=== PATIENT | female | born 1965 | race African-American/Black ===

== ENCOUNTER 2016-12-30 08:13 | Emergency (ER) | payer OTHER ==
[~2016-12-30] VITALS: Ht 162.6 cm; Wt 66.8 kg
[~2016-12-30 08:13] MED LIST: AZIT250T3 PO; IPRA0.03 EACH NARE
[2016-12-30 08:17] VITALS: BP 131/91; PULSE 69; RESP 16; TEMP 97.7; O2SAT 98
[2016-12-30] MEDS ORDERED: SERT-132 PO (08:29)
--- NOTE | 2016-12-30 08:39 | PD ---
HPI Chief Complaint: Abdominal Pain Time Seen by Provider: 08:33 Travel History International Travel<30 days: No Contact w/Intl Traveler<30days: No Traveled to known affect area: No History of Present Illness HPI Patient presents with epigastric discomfort. Reports several episodes of vomiting primarily after eating greasy foods. Admits to acid brash. No intervention with an H2 danna or proton pump inhibitor. Denies any change in bowels or urination. Denies hematemesis. Denies . PFSH Past Medical History Hx Anticoagulant Therapy: No Autoimmune Disease: Yes (SARCOIDOSIS) Anxiety: Yes Cardiac Catheterization: No Cardiovascular Problems: No High Cholesterol: Yes Chemotherapy: No Cerebrovascular Accident: No Diabetes: No Diminished Hearing: No Glaucoma: Yes (HX OF--NOW RESOLVED) Hepatitis: No Hiatal Hernia: No Hypertension: Yes Medical other: Yes (SARCOIDOSIS) Respiratory: Yes (SARCODOSIS) Immunizations Current: Yes Myocardial Infarction: No Thyroid Disease: No Tetanus Vaccination: < 5 Years Influenza Vaccination: No PNEUMOCCOCAL Vaccine (Year): 1 ?: Not Menopausal: Yes Past Surgical History Abdominal Surgery: No Cardiac Surgery: No Coronary Artery Bypass Graft: No Ear Surgery: No Endocrine Surgery: No Eye Surgery: Yes (both eyes-) Genitourinary Surgery: No Gynecologic Surgery: Yes (HYSTERECTOMY 2000) Hysterectomy: Yes (PARTIAL) Neurologic Surgery: No Oral Surgery: No Pacemaker: No Thoracic Surgery: No Other Surgery: Yes Family History Family Myocardial Infarction: Yes Social History Alcohol Use: No Tobacco Use: No Substance Use: No Allergies-Medications (Allergen,Severity, Reaction): Coded Allergies: Imuran (Verified Allergy, Severe, VOMITING, 12/30/16) Reported Meds & Prescriptions Reported Meds & Active Scripts Active Reported Sertraline (Sertraline HCl) 50 Mg Tab 50 Mg PO HS Review of Systems Gastrointestinal: Positive: Nausea, Vomiting Physical Exam Narrative GENERAL: Well-nourished, well-developed patient. SKIN: Focused skin assessment warm/dry. HEAD: Normocephalic. EYES: No scleral icterus. No injection or drainage. NECK: Supple, trachea midline. No JVD or lymphadenopathy. CARDIOVASCULAR: Regular rate and rhythm without murmurs, gallops, or rubs. RESPIRATORY: Breath sounds equal bilaterally. No accessory muscle use. GASTROINTESTINAL: Abdomen soft, non-tender, nondistended. Noted to belch several times on exam MUSCULOSKELETAL: No cyanosis, or edema. BACK: Nontender without obvious deformity. No CVA tenderness. Data Data Last Documented VS Vital Signs Date Time Temp Pulse Resp B/P Pulse Ox O2 Delivery O2 Flow Rate FiO2 12/30/16 08:17 97.7 69 16 131/91 98 Orders Al-Mag Hy-Si 40-40-4 Mg/Ml Liq (Mag-Al P (12/30/16 08:45) Lidocaine 2% Viscous (Xylocaine 2% Visco (12/30/16 08:45) Famotidine (Pepcid) (12/30/16 08:45) Pantoprazole (Protonix) (12/30/16 08:45) MDM Medical Decision Making Medical Screen Exam Complete: Yes Emergency Medical Condition: Yes Differential Diagnosis GERD, gastritis, cholelithiasis Narrative Course Assessment and plan discussed with patient at bedside. Patient provided a GI cocktail with resolution of symptoms. Patient is scheduled to see her PCP for blood work. Encouraged her to evaluate gallbladder at that time. Taking food and fluids prior to departure. Diagnosis Primary Impression: Gastritis Qualified Code: K29.70 - Gastritis, presence of bleeding unspecified, unspecified chronicity, unspecified gastritis type Additional Impression: Cephalgia Qualified Code: R51 - Nonintractable headache, unspecified chronicity pattern , unspecified headache type Patient Instructions: General Instructions Additional Instructions: Encouraged to avoid aggravating factors of reflux including but not limited to alcohol tobacco late large meals spicy meals and weight Med/Other Pt SpecificInfo: Prescription(s) given Scripts Rcrgueptvz-Rfjinbvsuwzff-Yrcxeywt (Fioricet)50-300-40 Mg Cap1 Cap PO Q4H PRN ( HEADACHE) #10 CAP Ref 0 Prov:Shelton Wood MD 12/30/16 Ranitidine (Zantac)150 Mg Njb551 Mg PO BID #30 TAB Ref 0 Prov:Shelton Wood MD 12/30/16 Pantoprazole (Protonix)40 Mg Tab40 Mg PO BID #30 TAB Ref 0 Prov:Shelton Wood MD 12/30/16 Disposition: 01 DISCHARGE HOME Condition: Good Shelton Wood MD Dec 30, 2016 08:39
[2016-12-30] MEDS ORDERED: LIDOCAINE VISCOUS 2% SOLN 15 ML UDC PO ONE (08:45)
[2016-12-30] MEDS ORDERED: PANTOPRAZOLE SOD 40 MG DELAYED RELEASE TAB PO ONE (08:45)
[2016-12-30] MEDS ORDERED: FAMOTIDINE 20 MG TAB PO ONE (08:45)
[2016-12-30] MEDS ORDERED: ALUMINUM/MAGNESIUM/SIMETH 30 ML CUP PO ONE (08:45)
[2016-12-30] MEDS ORDERED: PROT40TA PO (09:35)
[2016-12-30] MEDS ORDERED: ZANT150T2 PO (09:35)
[2016-12-30] MEDS ORDERED: BUTA1CAP PO (09:36)
[2016-12-30 09:55] VITALS: BP 141/90
== END 2016-12-30 09:57 | disposition home or self-care (01) ==
LOC: PHED 08:13
DX: K29.70 Gastritis, unspecified, without bleeding (principal); R51 Headache
CPT/HCPCS: 99283

== ENCOUNTER 2017-03-06 10:46 | Emergency (ER) | payer OTHER ==
[~2017-03-06 10:46] MED LIST changes: -AZIT250T3 PO; +BUTA1CAP PO; -IPRA0.03 EACH NARE; +PROT40TA PO; +SERT-132 PO; +ZANT150T2 PO
[2017-03-06 10:51] VITALS: BP 158/96; PULSE 74; RESP 18; TEMP 98.3; O2SAT 93
[2017-03-06] MEDS ORDERED: IBUPROFEN 600 MG TAB PO ONE (11:30)
--- NOTE | 2017-03-06 11:30 | PD ---
HPI Chief Complaint: Edema Time Seen by Provider: 11:12 Travel History International Travel<30 days: No Contact w/Intl Traveler<30days: No Traveled to known affect area: No History of Present Illness HPI This 51-year-old female is complaining of pain in her left leg. She says she woke at 1:00 this morning with pain in her left knee. She has a history of sarcoidosis. She has had some arthritis in the past. There is no history of injury to this knee. She is not aware of fever or chills. She has no history of gout. She was on Imuran for her sarcoidosis but it was stopped because she had vomiting. She is not on any medication now for her sarcoid. PFSH Past Medical History Hx Anticoagulant Therapy: No Autoimmune Disease: Yes (SARCOIDOSIS) Anxiety: Yes Depression: Yes Cardiac Catheterization: No Cardiovascular Problems: No High Cholesterol: Yes Chemotherapy: No Cerebrovascular Accident: No Diabetes: No Diminished Hearing: No Glaucoma: Yes (HX OF--NOW RESOLVED) Hepatitis: No Hiatal Hernia: No Hypertension: Yes Medical other: Yes (SARCOIDOSIS) Respiratory: Yes (SARCODOSIS) Immunizations Current: Yes Myocardial Infarction: No Thyroid Disease: No PNEUMOCCOCAL Vaccine (Year): 1 ?: Not Menopausal: Yes Past Surgical History Abdominal Surgery: No Cardiac Surgery: No Coronary Artery Bypass Graft: No Ear Surgery: No Endocrine Surgery: No Eye Surgery: Yes (both eyes-) Genitourinary Surgery: No Gynecologic Surgery: Yes (HYSTERECTOMY 2000) Hysterectomy: Yes (PARTIAL) Neurologic Surgery: No Oral Surgery: No Pacemaker: No Thoracic Surgery: No Other Surgery: Yes Family History Family Myocardial Infarction: Yes Social History Alcohol Use: No Tobacco Use: No Substance Use: No Allergies-Medications (Allergen,Severity, Reaction): Coded Allergies: Imuran (Verified Allergy, Severe, VOMITING, 03/06/17) Reported Meds & Prescriptions Reported Meds & Active Scripts Active Zantac (Ranitidine HCl) 150 Mg Tab 150 Mg PO BID Protonix (Pantoprazole Sodium) 40 Mg Tab 40 Mg PO BID Reported Sertraline (Sertraline HCl) 50 Mg Tab 50 Mg PO HS Review of Systems General / Constitutional: No: Fever, Chills Eyes: No: Diploplia, Blurred Vision HENT: No: Headaches, Vertigo Cardiovascular: No: Chest Pain or Discomfort, Palpitations Respiratory: No: Cough, Shortness of Breath Gastrointestinal: No: Nausea, Vomiting Genitourinary: No: Urgency, Frequency Musculoskeletal: Positive: Arthralgias, Edema, Pain, No: Myalgias Skin: No Rash, No Itching Neurologic: No: Weakness Physical Exam Narrative GENERAL: Well-developed female SKIN: Focused skin assessment warm/dry. HEAD: Atraumatic. Normocephalic. EYES: Pupils equal and round. No scleral icterus. No injection or drainage. ENT: No nasal bleeding or discharge. Mucous membranes pink and moist. NECK: Trachea midline. No JVD. MUSCULOSKELETAL: No obvious deformities. No clubbing. No cyanosis. On examining the left knee there is some diffuse swelling. There does appear to be an effusion in the left knee. It is slightly warm. There is no erythema is able to flex and extend NEUROLOGICAL: Awake and alert. No obvious cranial nerve deficits. Motor grossly within normal limits. Normal speech. PSYCHIATRIC: Appropriate mood and affect; insight and judgment normal. Data Data Last Documented VS Vital Signs Date Time Temp Pulse Resp B/P Pulse Ox O2 Delivery O2 Flow Rate FiO2 03/06/17 10:51 98.3 74 18 158/96 93 Orders Knee, Complete (4vws) (03/06/17 11:19) Ibuprofen (Motrin) (03/06/17 11:30) MDM Medical Decision Making Medical Screen Exam Complete: Yes Emergency Medical Condition: Yes Medical Record Reviewed: Yes Differential Diagnosis Patient has acute arthritis of the left knee. It is not hot and I don't think is septic or gout. Narrative Course X-ray of the left knee shows small joint effusion. It is negative for fracture. Diagnosis Primary Impression: Acute arthritis Additional Instructions: Take ibuprofen 4 times daily. Follow-up with Disposition: 01 DISCHARGE HOME Condition: Stable Pineda Bonilla MD Mar 06, 2017 11:30
--- NOTE | 2017-03-06 12:07 | RADHPO ---
EXAM DATE/TIME: 03/06/2017 11:36 [facility] COMPARISON: No previous studies available for comparison. INDICATIONS : Left knee pain with no known injury MEDICAL HISTORY : None. SURGICAL HISTORY : None. ENCOUNTER: Initial ACUITY: 2 days PAIN SCORE: 10/10 LOCATION: Left medial knee FINDINGS: Small joint effusion is evident. There is loss of articular cartilage in the medial compartment. Al ignment is anatomic. A fracture is not appreciated. CONCLUSION: Small joint effusion, negative for fracture. Driss Sanchez MD FACR on March 06, 2017 at 12:02 Board Certified Radiologist. This report was verified electronically.
[2017-03-06 12:59] VITALS: BP 140/86; PULSE 78; RESP 20; O2SAT 92
[2017-03-06 13:14] VITALS: RESP 16
== END 2017-03-06 13:15 | disposition home or self-care (01) ==
LOC: PHED 10:46
DX: M19.90 Unspecified osteoarthritis, unspecified site (principal); E78.00 Pure hypercholesterolemia, unspecified; I10 Essential (primary) hypertension; D86.9 Sarcoidosis, unspecified
CPT/HCPCS: 73564; 99283

== ENCOUNTER 2017-11-13 14:30 | Emergency (ER) | payer OTHER ==
[~2017-11-13] VITALS: Ht 162.6 cm; Wt 72.0 kg
[~2017-11-13 14:30] MED LIST changes: -BUTA1CAP PO
[2017-11-13 14:50] VITALS: BP 141/83; PULSE 82; RESP 18; TEMP 99; O2SAT 96
--- NOTE | 2017-11-13 15:42 | RADRPT ---
EXAM DATE/TIME: 11/13/2017 15:13 [facility] COMPARISON: CHEST PA & LAT, August 31, 2016, 15:08. KNEE LEFT COMPLETE (4VWS), March 06, 2017, 11:36. INDICATIONS : Cough, fever, chest pain for 3 days MEDICAL HISTORY : None. SURGICAL HISTORY : None. ENCOUNTER: Initial ACUITY: 3 days PAIN SCORE: 8/10 LOCATION: Bilateral chest FINDINGS: Single view chest demonstrates COPD changes. There is a small area of linear atelectasis or scarring on the right. The heart is normal in size. The visualized osseous structures are intact. The exam is stable compared to previous dated 08/31/16. CONCLUSION: 1. COPD changes. No acute abnormality. Irineo Sanchez MD on November 13, 2017 at 15:34 Board Certified Radiologist. This report was verified electronically.
[2017-11-13] MEDS ORDERED: PRED10PA PO (15:55)
--- NOTE | 2017-11-13 15:55 | PD ---
HPI Chief Complaint: Cold / Flu Symptoms Time Seen by Provider: 15:50 Travel History International Travel<30 days: No Contact w/Intl Traveler<30days: No Traveled to known affect area: No History of Present Illness HPI Patient comes to the emergency department complaining of cough is occasionally productive 3 days. Patient denies any shortness of breath, nausea, vomiting, chest pain, loss or change in bowel or bladder. Patient reports temperature at home was 99.5. Patient reports that she has sarcoidosis and feels somewhat similar to that flaring up. Patient reports she has to take steroids when she starts coughing like this last time was 2 months ago. Patient reports she has albuterol at home but has not been using it. Denies anything making symptoms better or worse. PFSH Past Medical History Hx Anticoagulant Therapy: No Autoimmune Disease: Yes (SARCOIDOSIS) Anxiety: Yes Depression: Yes Cardiac Catheterization: No Cardiovascular Problems: No High Cholesterol: Yes Chemotherapy: No Cerebrovascular Accident: No Diabetes: No Diminished Hearing: No Glaucoma: Yes (HX OF--NOW RESOLVED) Hepatitis: No Hiatal Hernia: No Hypertension: Yes Medical other: Yes (SARCOIDOSIS) Respiratory: Yes (SARCODOSIS) Immunizations Current: Yes Myocardial Infarction: No Thyroid Disease: No Influenza Vaccination: No PNEUMOCCOCAL Vaccine (Year): 1 ?: Not Menopausal: Yes Past Surgical History Abdominal Surgery: No Cardiac Surgery: No Coronary Artery Bypass Graft: No Ear Surgery: No Endocrine Surgery: No Eye Surgery: Yes (both eyes-) Genitourinary Surgery: No Gynecologic Surgery: Yes (HYSTERECTOMY 2000) Hysterectomy: Yes (PARTIAL) Neurologic Surgery: No Oral Surgery: No Pacemaker: No Thoracic Surgery: No Other Surgery: Yes Family History Family Myocardial Infarction: Yes Social History Alcohol Use: No Tobacco Use: No Substance Use: No Allergies-Medications (Allergen,Severity, Reaction): Coded Allergies: azathioprine (Unverified Allergy, Severe, VOMITING, 11/13/17) Reported Meds & Prescriptions Reported Meds & Active Scripts Active Prednisone (21) 10 mg tab Dose Pack (Prednisone) 10 Mg Pack 10 Mg PO DIRECTED Zantac (Ranitidine HCl) 150 Mg Tab 150 Mg PO BID Protonix (Pantoprazole Sodium) 40 Mg Tab 40 Mg PO BID Reported Sertraline (Sertraline HCl) 50 Mg Tab 50 Mg PO HS Review of Systems Except as stated in HPI: all other systems reviewed are Neg Physical Exam Narrative GENERAL: Well-developed, well nourished, in no acute distress, and non-ill appearing. SKIN: Focused skin assessment warm and dry. HEAD: Atraumatic. Normocephalic. EYES: Pupils equal and round. EOMI. No scleral icterus. No injection or drainage. ENT: No nasal bleeding or discharge. Mucous membranes pink and moist. Tympanic membranes pearly molina bilaterally. Posterior pharynx nonerythematous without exudate. Uvula is midline. No tenderness to facial sinuses to palpation. NECK: Trachea midline. No cervical lymphadenopathy. Supple. No nuclear rigidity. CARDIOVASCULAR: Regular rate and rhythm. No murmur appreciated. RESPIRATORY: No accessory muscle use. No respiratory distress. Clear to auscultation. Breath sounds equal bilaterally. No coughing noted on exam. MUSCULOSKELETAL: No obvious deformities. No clubbing. No cyanosis. No edema. Full range of motion. NEUROLOGICAL: Awake and alert. No obvious cranial nerve deficits. Motor grossly within normal limits. Normal speech. PSYCHIATRIC: Appropriate mood and affect; insight and judgment normal. Data Data Last Documented VS Vital Signs Date Time Temp Pulse Resp B/P (MAP) Pulse Ox O2 Delivery O2 Flow Rate FiO2 11/13/17 14:50 99.0 82 18 141/83 (102) 96 Orders Orders Influenzae A/B Antigen (11/13/17 15:01) Group A Rapid Strep Screen (11/13/17 15:01) Chest, Single Ap (11/13/17 ) Strep Culture (Group A) (11/13/17 15:07) Ed Discharge Order (11/13/17 15:52) Prednisone (Deltasone) (11/13/17 16:00) [facility] Medical Decision Making Medical Screen Exam Complete: Yes Emergency Medical Condition: Yes Interpretation(s) Last Impressions Chest X-Ray 11/13/17 0000 Signed Impressions: Service Date/Time: Monday, November 13, 2017 15:13 - CONCLUSION: 1. COPD changes. No acute abnormality. Irineo Sanchez MD Differential Diagnosis Pneumonia, influenza, strep pharyngitis, viral pharyngitis, URI, bronchitis, sarcoidosis flare, URI Narrative Course Patients symptom complex is consistent with bronchitis. The patient is non-ill appearing and is in no respiratory distress and comfortable. The patient moves air well and oxygen saturations are normal. Chest x-ray revealed no evidence of obvious consolidation of infiltrate. There is no clinical evidence to suggest pneumonia at this time. Patient was offered a breathing treatment prior to discharge, but is just wanting to start steroids and go home and use her albuterol. Plan of care and management were discussed with the patient who agreed with plan. The patient was instructed to follow up with their physician and instructed to return if worsens, progressively worsening shortness of breath or difficulty breathing, persistent fever, chest pains or discomfort, inability to keep medication or fluids down with or without vomiting, or as needed. Patient in no obvious distress upon re-evaluation. All pertinent laboratory/ Radiology result(s) discussed with patient. Patient was asked if they wanted to speak to my attending, which the patient did not wish to do at this time. Any questions/concerns in reference to patient diagnosis/condition discussed and clarified prior to patient's discharge. Reinforced sheer importance of close follow up with patient's primary physician or primary care clinic. Instructed patient to return to ED immediately, if symptoms return/worsen. Patient showed understanding of above instructions. Further instructions and recommendations were detailed in discharge paperwork. Patient ambulated without difficulty out of ED at discharge. 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 Take all medication as prescribed. Return to the emergency department if symptoms get worse. Med/Other Pt SpecificInfo: Prescription(s) given Scripts Prednisone (21) 10 mg tab Dose Pack (Prednisone (21) 10 mg tab Dose Pack) 10 Mg Pack 10 MG PO DIRECTED for Inflammation, #1 DSPK 0 Refills Prov: Eric Webb MD 11/13/17 Disposition: 01 DISCHARGE HOME Condition: Stable Douglas Schwab Nov 13, 2017 15:55
[2017-11-13] MEDS ORDERED: predniSONE 20 MG TAB PO ONE (16:00)
== END 2017-11-13 16:08 | disposition home or self-care (01) ==
LOC: PHEFT 14:30
DX: J20.9 Acute bronchitis, unspecified (principal); D86.9 Sarcoidosis, unspecified; F32.9 Major depressive disorder, single episode, unspecified; E78.00 Pure hypercholesterolemia, unspecified; I10 Essential (primary) hypertension; Z88.8 Allergy status to other drugs, medicaments and biological substances
CPT/HCPCS: 71045; 87081; 87804; 87880; 99284; J7512